=== PATIENT | female | born 1975 | race Caucasian/White ===

== ENCOUNTER 2022-07-31 20:48 | Emergency (ER) | payer BC ==
[2022-07-31] MEDS ORDERED: Ketorolac 30 MG/ML SDV IVPUSH ONE (21:18)
[2022-07-31] MEDS ORDERED: Orphenadrine 100 MG Tab.ER PO ONE (21:18)
[2022-07-31] MEDS ORDERED: HYDROmorphone 0.5 MG/0.5 ML Syringe IVPUSH ONE ×2 (21:18→22:17)
[2022-07-31] MEDS ORDERED: Midazolam 1 MG/ML 2 ML SDV IVPUSH ONE (22:15)
[2022-07-31] MEDS ORDERED: Ondansetron 4 MG/2 ML SDV IVPUSH ONE (22:32)
== END 2022-07-31 23:51 | disposition home or self-care (01) ==
LOC: JD.ED 20:48
DX: M54.50 Low back pain, unspecified (principal); G89.29 Other chronic pain; M62.830 Muscle spasm of back; Z79.899 Other long term (current) drug therapy
CPT/HCPCS: 96374; 96375; 96376; 99283; A9270; J1170; J1885; J2250

== ENCOUNTER 2022-08-05 10:45 | Emergency (ER) | payer BC ==
[2022-08-05] MEDS ORDERED: HYDROmorphone 1 MG/ML Syringe IM ONE (11:36)
[2022-08-05] MEDS ORDERED: Ketorolac 60 MG/2 ML SDV IM ONE (11:36)
== END 2022-08-05 13:32 | disposition home or self-care (01) ==
LOC: JD.ED 10:45
DX: M54.50 Low back pain, unspecified (principal)
CPT/HCPCS: 96372; 99283; J1170; J1885

== ENCOUNTER 2023-01-09 15:27 | Emergency (ER) | payer BC ==
[2023-01-09] MEDS ORDERED: Sodium Chloride 0.9% 1,000 ML IV ONE ×2 (16:03→17:51)
[2023-01-09] MEDS ORDERED: Sodium Chloride 0.9% 10 ML Syringe FLUSH PRN (16:08)
[2023-01-09 16:31] LABS: BASOPHILS PERCENT AUTO 0.3 % (0.0-1.0); EOSINOPHILS ABSOLUTE AUTO 0.1 K/mm3 (0.0-0.4); EOSINOPHILS PERCENT AUTO 1.6 % (0.0-6.0); HEMATOCRIT 39.3 % (37.0-47.0); HEMOGLOBIN 13.3 gm/dl (12.0-16.0); LYMPHOCYTES ABSOLUTE AUTO 0.9 K/mm3 (1.0-4.8); LYMPHOCYTES PERCENT AUTO 28.8 % (24.0-44.0); MEAN CORPUSCULAR HEMOGLOBIN 31.3 pg (28.0-32.0); MEAN CORPUSCULAR HGB CONC 33.8 g/dl (32.0-36.0); MEAN CORPUSCULAR VOLUME 92.5 fl (83.0-99.0); MEAN PLATELET VOLUME 10.3 fl (9.4-12.3); MONOCYTES ABSOLUTE AUTO 0.4 K/mm3 (0.0-0.8); MONOCYTES PERCENT AUTO 13.3 % (0.0-8.0); NEUTROPHILS ABSOLUTE AUTO 1.7 K/mm3 (1.8-7.7); PLATELET COUNT,PLT 177 K/mm3 (150-400); RED BLOOD CELL COUNT 4.25 M/mm3 (4.10-5.30); WHITE BLOOD CELL COUNT,WBC 3.09 K/mm3 (3.9-11.3)
[2023-01-09 16:40] LABS: ALBUMIN 3.3 g/dl (3.4-5.0); ANION GAP 12.9 (5-15); BILIRUBIN TOTAL 0.2 mg/dL (0.2-1.0); BUN/CREATININE RATIO 8.6 (14-18); CALCIUM 8.8 mg/dL (8.5-10.1); CREATININE 0.7 mg/dL (0.55-1.02); EST CRCL DRUG DOSING (CG) 85.79 mL/min; POTASSIUM,K 3.9 mEq/L (3.5-5.1); PROTEIN TOTAL,TP 6.5 g/dl (6.4-8.2)
[2023-01-09 16:42] LABS: APPEARANCE,URINE CLEAR (Clear); BILIRUBIN,URINE NEGATIVE (Negative); COLOR,URINE YELLOW (Yellow); GLUCOSE,URINE NEGATIVE (Negative); KETONES,URINE NEGATIVE (Negative); LEUKOCYTE ESTERASE,URINE 1+ (Negative); NITRITE,URINE POSITIVE (Negative); OCCULT BLOOD,URINE NEGATIVE (Negative); PH,URINE 7.5 (5.0-8.0); PROTEIN,URINE NEGATIVE (Negative); UROBILINOGEN,URINE 0.2 (0.2-1.0)
[2023-01-09 16:55] LABS: BACTERIA,URINE MANY /hpf (FEW); MUCUS,URINE NOT SEEN /hpf (FEW); RBC,URINE 0-5 /hpf (0-5)
[2023-01-09 17:05] LABS: INFLUENZA A NAA NEGATIVE (NEGATIVE); RESPIRATORY SYNCYTIAL VIR NAA NEGATIVE (NEGATIVE)
[2023-01-09] MEDS ORDERED: Ketorolac 15 MG/ML SDV IVPUSH ONE (17:22)
[2023-01-09] MEDS ORDERED: cefTRIAXone 1 GM in Sodium Chloride 0.9% 100 ML IV ONE (17:22)
[2023-01-09 17:31] LABS: CORONAVIRUS COVID-19 NAA POSITIVE (NEGATIVE)
== END 2023-01-09 19:40 | disposition home or self-care (01) ==
LOC: JD.ED 15:27
DX: U07.1 COVID-19 (principal); E86.0 Dehydration; N30.00 Acute cystitis without hematuria; Z79.899 Other long term (current) drug therapy
CPT/HCPCS: 0241U; 36415; 80053; 81001; 84145; 85025; 86140; 87086; 96361; 96365; 96375; 99284; J0696; J1885; J3490; J7030; 87088; 87186